=== PATIENT | female | born 1960 | race Caucasian/White ===

== ENCOUNTER 2017-09-26 11:38 | Day surgery (SDC) | payer OTHER ==
[~2017-09-26 11:38] MED LIST: MIDAZOLAM INJ 2 MG/2 ML VIAL (J2250) As Ordered; fentaNYL 100 MCG/2 ML INJECTION (J3010) As Ordered
[2017-09-26] MEDS: LIDOCAINE 3.5 % 1ML OPHTH TOPICAL GEL OU (12:17)
[2017-09-26] MEDS ORDERED: LIDOCAINE 2% W/EPIN INJ 20ML **PRES FREE As Ordered (13:43)
[2017-09-26] MEDS: POVIDONE-IODINE 5% OPHTH PREP SOL 30ML As Ordered (14:13)
[2017-09-26] MEDS ORDERED: PROPOFOL 200 MG/20 ML VIAL As Ordered (14:15)
[2017-09-26] MEDS ORDERED: LIDOCAINE 2% INJ 100 MG/5 ML SDV (FOR ANES.) As Ordered (14:15)
[2017-09-26] MEDS ORDERED: ONDANSETRON 4MG/2ML VIAL (J2405) As Ordered (14:15)
[2017-09-26] MEDS ORDERED: METOCLOPRAMIDE INJ 10MG/2ML VIAL (J2765) As Ordered (14:15)
[2017-09-26] MEDS ORDERED: LABETALOL HCL 100 MG/20 ML VIAL As Ordered (14:27)
[2017-09-26] MEDS: TETRACAINE 0.5% OPHTH SOLN 4ML As Ordered (14:28)
[2017-09-26] MEDS: ERYTHROMYCIN OPHTH OINT As Ordered (14:29)
[2017-09-26] MEDS ORDERED: ACETAMINOPHEN 500 MG TAB As Ordered (15:18)
[2017-09-26] MEDS: ACETAMINOPHEN 500 MG TAB PO (15:30)
== END 2017-09-26 16:00 | disposition home or self-care (01) ==
LOC: M SDC 11:38
DX: H02.831 Dermatochalasis of right upper eyelid (principal); H02.834 Dermatochalasis of left upper eyelid; H02.539 Eyelid retraction unspecified eye, unspecified lid; E04.9 Nontoxic goiter, unspecified; E55.9 Vitamin D deficiency, unspecified; I10 Essential (primary) hypertension; E78.00 Pure hypercholesterolemia, unspecified; K22.70 Barrett's esophagus without dysplasia; K21.9 Gastro-esophageal reflux disease without esophagitis; M79.7 Fibromyalgia; G43.909 Migraine, unspecified, not intractable, without status migrainosus; Z88.0 Allergy status to penicillin; Z88.1 Allergy status to other antibiotic agents; Z88.2 Allergy status to sulfonamides; Z79.899 Other long term (current) drug therapy; Z90.710 Acquired absence of both cervix and uterus; Z87.440 Personal history of urinary (tract) infections
CPT/HCPCS: 15823